=== PATIENT | female | born 1945 | race Caucasian/White ===

== ENCOUNTER 2020-08-25 19:39 | Inpatient (IN) | payer MEDICARE, OTHER ==
[~2020-08-25] VITALS: Ht 157.5 cm; Wt 62.6 kg
--- NOTE | 2020-08-25 20:03 | NUR ---
PT LLOYD 41 FROM HOME FOR C/O ALOC AND AGITATION S/P HAVING ROUTINE ANUAL CT. PT AAOX4 KAZAKH SPEAKER, BREATHING QUICKLY AND EVENLY, 91% VIA NC. PT PLACED ON 10L O2 SIMPLE MASK SATURATION TO 95%. PT ATTACHED TO MONITOR AND POX. PT GIVEN CALL LIGHT WITHIN REACH. MD AT BEDSIDE FOR EVAL. WILL CONTINUE TO MONITOR.
[2020-08-25 20:38] LABS: BASOPHILS % (AUTO) 0.2 % (0.0-2.0); EOSINOPHILS % (AUTO) 0.1 % (0.0-6.0); HEMATOCRIT 29 % (33-45); HEMOGLOBIN 9.1 g/dL (11.5-14.8); LYMPHOCYTES % (AUTO) 17.2 % (20.0-44.0); MEAN CORPUSCULAR HGB CONC 32 g/dl (31.0-36.0); MEAN CORPUSCULAR VOLUME 79 fL (82-100); MONOCYTES % (AUTO) 0.3 % (2.0-12.0); NEUTROPHILS # (AUTO) 4.7 K/uL (1.8-8.9); NEUTROPHILS % (AUTO) 82.2 % (43.0-81.0); PLATELET COUNT (AUTO) 185 K/uL (150-450); RED BLOOD CELL COUNT(AUTO) 3.67 MIL/uL (4.0-5.2); WHITE BLOOD COUNT (AUTO) 5.7 K/uL (4.3-11.0)
--- NOTE | 2020-08-25 20:43 | NUR ---
TAKEN TO CT
[2020-08-25 20:48] LABS: CALCIUM, SERUM 8.2 mg/dL (8.5-10.1); CARBON DIOXIDE 12 mmol/L (21-32); CHLORIDE 101 mmol/L (98-107); CREATININE 1.1 mg/dL (0.6-1.3); GLUCOSE 123 mg/dL (74-106); POTASSIUM 3.6 mmol/L (3.5-5.1); SODIUM SERUM 133 mmol/L (136-145); UREA NITROGEN, BLOOD 19 mg/dL (7-18)
[2020-08-25 20:51] LABS: SERUM AMMONIA 41 umol/L (11-32)
[2020-08-25 20:55] LABS: ALANINE AMINOTRANSFERASE 24 U/L (12-78); ALBUMIN 2.8 g/dL (3.4-5.0); ALCOHOL, BLOOD < 3 mg/dL (0-0); ALKALINE PHOSPHATASE 128 U/L (46-116); ASPARTATE AMINOTRANSFERASE 20 U/L (15-37); BILIRUBIN,DIRECT 0.2 mg/dL (0.0-0.2); BILIRUBIN,TOTAL 0.4 mg/dL (0.2-1.0); TOTAL PROTEIN, SERUM 6.8 g/dL (6.4-8.2)
[2020-08-25 20:57] LABS: ACETAMINOPHEN < 2 ug/ml (10-30)
[2020-08-25 21:04] LABS: THYROID STIMULATING HORMONE 0.847 uIU/mL (0.358-3.74)
--- NOTE | 2020-08-25 21:18 | NUR ---
BLOOD OBTAINED AND SENT TO LAB
[2020-08-25] MEDS ORDERED: VANCOMYCIN 1 GM VIAL ONE (21:19)
[2020-08-25] MEDS ORDERED: PIPERACILLIN /TAZOBACTAM 3.375 G VIAL IV ONE (21:19)
[2020-08-25] MEDS ORDERED: PIPERACILLIN /TAZOBACTAM 3.375 G in IV D5W 50 ML IV ONE (21:30)
[2020-08-25] MEDS ORDERED: IV NS 0.9% 1,000 ML BAG IV ONE (21:30)
[2020-08-25] MEDS ORDERED: VANCOMYCIN 1 GM in IV D5W 250 ML IV ONE (21:30)
--- NOTE | 2020-08-25 21:40 | NUR ---
COVID SWAB SENT TO LAB
--- NOTE | 2020-08-25 22:15 | NUR ---
DAUGHTER, DARRELL [phone]
--- NOTE | 2020-08-25 22:48 | NUR ---
pt placed on 15l o2 via NRB. staturating 96%
[2020-08-25] MEDS ORDERED: ONDANSETRON HCL/PF 4 MG/2 ML VIAL IVP PRN (23:00)
[2020-08-25] MEDS ORDERED: MAG HYDROX/AL HYDROX/SIMETH 30 ML UDC PO PRN (23:00)
[2020-08-25] MEDS ORDERED: ACETAMINOPHEN 325 MG TABLET PO PRN (23:00)
[2020-08-25] MEDS ORDERED: IV NS 0.9% 1,000 ML IV PRN (23:00)
[2020-08-25] MEDS ORDERED: Z GUARD REMEDY 2 OZ OINT TP PRN (23:00)
[2020-08-25] MEDS ORDERED: MAGNESIUM HYDROXIDE 30 ML UDC PO PRN (23:00)
[2020-08-26] VITALS (93 sets, daily range): BP systolic 60–139; BP diastolic 24–76
--- NOTE | 2020-08-26 00:13 | NUR ---
ATTEMPTED TO GIVE REPORT, NURSE WILL CALL BACK IN 10 MIN
--- NOTE | 2020-08-26 01:10 | NUR ---
PT IS GOING TO ICU 254
[2020-08-26] MEDS ORDERED: NOREPINEPHRINE 4 MG/4 ML AMPUL IV ONE ×2 (01:19→05:03)
[2020-08-26] MEDS: NOREPINEPHRINE 8 MG in IV NS 0.9% 242 ML IV PRN ×7 (01:36→15:33)
--- NOTE | 2020-08-26 02:05 | NUR ---
PER HOUSE SUP, RN ON BREAK, TAKE PT UP IN 30MIN
--- NOTE | 2020-08-26 02:51 | NUR ---
GAVE REPORT TO LEBRON HODGE FOR RAÚL
[2020-08-26] MEDS: ENOXAPARIN SODIUM 40 MG/0.4 ML DISP.SYRIN SQ SCH ×2 (03:52→21:52)
--- NOTE | 2020-08-26 04:00 | NUR ---
RN NOTES 0300 Received patient from ED via ACLS protocol awake alert and oriented x3.Dx:Sepsis/Pneumonia.Hypotensive with ongoing Levophed gtt at 0.5 mcg and NS at 75 ml/hr to LFA site intact.SOB on exertion with 15L NRB mask saturation 96%-97%.Breathing even and unlabored.Incontinent of urine kept clean and dry.Bed bath rendered.FC FR # 16 inserted under aseptic technique. Tolerated procedure well.BMx1 formed medium stool brown colored.Initial admission assessment done.Kept comfortable.Continue monitoring.
[2020-08-26 04:37] LABS: BASOPHILS # (AUTO) 0.2 K/uL (0.0-0.2); BASOPHILS % (AUTO) 0.4 % (0.0-2.0); EOSINOPHILS % (AUTO) 1.2 % (0.0-6.0); HEMATOCRIT 24 % (33-45); HEMOGLOBIN 7.4 g/dL (11.5-14.8); LYMPHOCYTES # (AUTO) 1.9 K/uL (0.8-4.8); LYMPHOCYTES % (AUTO) 4.5 % (20.0-44.0); MEAN CORPUSCULAR HGB CONC 32 g/dl (31.0-36.0); MEAN CORPUSCULAR VOLUME 79 fL (82-100); MONOCYTES # (AUTO) 1.1 K/uL (0.1-1.30); MONOCYTES % (AUTO) 2.5 % (2.0-12.0); NEUTROPHILS # (AUTO) 38.4 K/uL (1.8-8.9); NEUTROPHILS % (AUTO) 91.4 % (43.0-81.0); PLATELET COUNT (AUTO) 244 K/uL (150-450); RED BLOOD CELL COUNT(AUTO) 2.98 MIL/uL (4.0-5.2)
[2020-08-26 04:54] LABS: ALBUMIN 2.4 g/dL (3.4-5.0); BILIRUBIN,TOTAL 0.5 mg/dL (0.2-1.0); CALCIUM, SERUM 7.4 mg/dL (8.5-10.1); CREATININE 1.3 mg/dL (0.6-1.3); MAGNESIUM 1.3 mg/dL (1.8-2.4); PHOSPHORUS 2.5 mg/dL (2.5-4.9); POTASSIUM 3.6 mmol/L (3.5-5.1)
[2020-08-26 04:55] LABS: BAND % (MANUAL) 28 % (0.0-5.0); EOSINOPHILS % (MANUAL) 1 % (0-4); LYMPHOCYTES % (MANUAL) 3 % (16-48); MONOCYTES % (MANUAL) 1 % (0-11.0); NEUTROPHILS % (MANUAL) 64 (42-76)
[2020-08-26 04:56] LABS: METAMYELOCYTES % 3 % (0-0)
[2020-08-26] MEDS ORDERED: PIPERACILLIN /TAZOBACTAM 3.375 G VIAL IV ONE (05:03)
[2020-08-26 05:08] LABS: THYROID STIMULATING HORMONE 0.652 uIU/mL (0.358-3.74)
[2020-08-26] MEDS ORDERED: ZOSYN IVPB 3.375 G in IV D5W 50ml IV SCH (06:00)
--- NOTE | 2020-08-26 06:00 | NUR ---
RN NOTES AM labs resulted WBC 42 called to MEERA Barber with orders received and carried out.
--- NOTE | 2020-08-26 07:19 | NUR ---
RN NOTES Patient remains hemodynamically unstable.Max out on Levophed gtt.Received order to start Neosynephrine gtt.No acute distress noted.Needs PICC LINE insertion.Report given to day shift for continuity of care.
[2020-08-26 07:30] LABS: BASOPHILS % (AUTO) 0.1 % (0.0-2.0); EOSINOPHILS % (AUTO) 0.4 % (0.0-6.0); HEMATOCRIT 24 % (33-45); HEMOGLOBIN 7.6 g/dL (11.5-14.8); LYMPHOCYTES # (AUTO) 2.4 K/uL (0.8-4.8); LYMPHOCYTES % (AUTO) 4.5 % (20.0-44.0); MEAN CORPUSCULAR HGB CONC 31 g/dl (31.0-36.0); MEAN CORPUSCULAR VOLUME 79 fL (82-100); MONOCYTES # (AUTO) 2.4 K/uL (0.1-1.30); MONOCYTES % (AUTO) 4.6 % (2.0-12.0); NEUTROPHILS # (AUTO) 47.6 K/uL (1.8-8.9); NEUTROPHILS % (AUTO) 90.4 % (43.0-81.0); PLATELET COUNT (AUTO) 233 K/uL (150-450); RED BLOOD CELL COUNT(AUTO) 3.07 MIL/uL (4.0-5.2)
[2020-08-26 07:35] LABS: WHITE BLOOD COUNT (AUTO) 52.7 K/uL (4.3-11.0)
--- NOTE | 2020-08-26 07:40 | NUR ---
ICU/RN PT IS ON NRM AT 15L.SAT O2-98%. HAS SOB.ABG ORDERED.ON LEVOPHED DRIP MAXIMUM DOSE.NEOSYNEPHRINE ORDERED AND STARTED.AFEBRILE,NO PAIN REPORTED AT THIS TIME .IV FLUIDS INFUSING ORDERED.F/C DRAINING WITH YELLOW URINE,PT IS AWAKE,ALERT.ST HELENIAN SPEAKING.LABS REVIEW.MG-1.3. NOTIFIED.NEW ORDERS REVIEW.
[2020-08-26] MEDS: PHENYLEPHRINE 100 MG in IV NS 0.9% 240 ML IV PRN ×2 (07:41→22:40)
[2020-08-26] MEDS ORDERED: Magnesium 1GM/D5W 100ML PREMIX 100 ML IV SCH (08:00)
[2020-08-26] MEDS: Magnesium 1GM/D5W 100ML PREMIX 100 ML IV SCH ×4 (08:06→11:03)
[2020-08-26 08:15] LABS: ABG BASE EXCESS -12.7 mmol/L; ABG OXYGEN SATURATION 92.2 % (92.0-98.5); ABG PCO2 26.1 mmHg (35.0-45.0); ABG PH 7.295 (7.350-7.450); ABG PO2 66.5 mmHg (75.0-100.0); AaDO2 620.4 mmHg; COHb 0.3 % (0.5-1.5); MetHb 0.5 % (0.0-1.5); O2Hb 91.5 % (94.0-97.0); SITE, ABG Right Brachial; VENT MODE, BG non rebreather
[2020-08-26] MEDS: PANTOPRAZOLE 40 MG VIAL IV SCH (08:28)
--- NOTE | 2020-08-26 09:00 | NUR ---
ICU/RN DUE MEDS ARE GIVEN ORDERED.CONSENT FOR PICC LINE SIGH OVER THE PHONE.
[2020-08-26] MEDS: HYDROCORTISONE SOD SUCCINATE 100 MG/2 ML VIAL IV SCH ×3 (09:24→21:48)
[2020-08-26] MEDS ORDERED: OMEP40CA21 PO (11:00)
[2020-08-26] MEDS ORDERED: CLOP75TA15 PO (11:00)
[2020-08-26] MEDS ORDERED: TOLT2CAP22 PO (11:00)
[2020-08-26] MEDS ORDERED: ROSU20TA32 PO (11:00)
[2020-08-26] MEDS ORDERED: DOCU100C36 PO (11:00)
[2020-08-26] MEDS ORDERED: IBUP-1953 PO (11:00)
[2020-08-26] MEDS ORDERED: ERGO500093 PO (11:00)
[2020-08-26] MEDS ORDERED: FLUT16SP16 (11:00)
[2020-08-26] MEDS ORDERED: GABA-532 PO (11:00)
[2020-08-26] MEDS ORDERED: VALS80TA31 PO (11:01)
[2020-08-26] MEDS ORDERED: AMLO-212 PO (11:01)
[2020-08-26] MEDS ORDERED: CYAN25003 SL (11:01)
[2020-08-26] MEDS ORDERED: OLOP2.5D16 EACHEYE (11:01)
[2020-08-26] MEDS ORDERED: ACET-1262 PO (11:01)
[2020-08-26] MEDS ORDERED: BACL10TA PO (11:01)
[2020-08-26] MEDS ORDERED: CETI10TA14 PO (11:01)
[2020-08-26] MEDS: PIPERACILLIN /TAZOBACTAM 3.375 G in IV D5W 100 ML IV SCH ×2 (11:26→20:18)
[2020-08-26] MEDS: MORPHINE SULFATE INJ 2 MG/ML DISP.SYRIN IV PRN (11:39)
--- NOTE | 2020-08-26 11:39 | NUR ---
ICU/RN PT C/O OF ABDOMINAL PAIN 8-10/30.MORPHINE SULFATE 2 MG IV GIVEN ORDERED. ZOFRAN 4 MG IV GIVEN .CT OF ABDOMEN AND PELVIS ORDERED.WAITING FOR PICC LINE PLACEMENT.PT IS ON 2 PRESSORS NOW.ABG REPEAT.
[2020-08-26 11:42] LABS: BILIRUBIN,URINE NEGATIVE (NEGATIVE); COLOR,URINE YELLOW (YELLOW); LEUKOCYTE ESTERASE ,URINE SMALL (NEGATIVE); NITRITE, URINE NEGATIVE (NEGATIVE); PROTEIN,URINE 30 mg/dl (NEGATIVE); UGLUCOSE NEGATIVE (NEGATIVE); UROBILINOGEN,URINE 0.2 EU/dL (0.2)
[2020-08-26 11:45] LABS: ABG BASE EXCESS -15.7 mmol/L; ABG OXYGEN SATURATION 90.2 % (92.0-98.5); ABG PCO2 29.8 mmHg (35.0-45.0); ABG PO2 65.1 mmHg (75.0-100.0); AaDO2 618.1 mmHg; COHb 0.3 % (0.5-1.5); MetHb 0.2 % (0.0-1.5); O2Hb 89.7 % (94.0-97.0); SITE, ABG Right Brachial; VENT MODE, BG non rebreather
--- NOTE | 2020-08-26 12:15 | NUR ---
@[address] weaver due to increased work of breathing, metabolic acidosis, and low pao2. intubated with 7.5 et tube secured @ 23 cm lipline. CO2 detector changed to yellow color, breath sounds clear bilateral with symmetrical chest rise post intubation. vent settings below per owen: ac 26 vt 450 fio2 100% peep + 5 vent plugged into red outlet with alarms on and functioning. Addendum: 08/26/20 at 1246 by MILLIE POLANCO RT Amended: Links added.
--- NOTE | 2020-08-26 12:20 | NUR ---
ICU/RN PT IS INTUBATED.PLACED ON THE VENT AC MODE,FIO2-100%.SAT O2-90%.DIPRIVAN STARTED.RESTRAINS IS ON.
[2020-08-26] MEDS ORDERED: VASOPRESSIN INJ 20 UNIT/ML VIAL IM PRN (12:30)
[2020-08-26 12:41] LABS: BACTERIA,URINE Few /HPF (None Seen); URINE AMORPHOUS URATE Few /HPF (None Seen)
[2020-08-26 12:42] LABS: SQUAMOUS EPITHELIAL CELL,UR Moderate /HPF (None Seen)
[2020-08-26] MEDS ORDERED: PROPOFOL 10MG/ML 50ML 50 ML IV PRN (13:00)
[2020-08-26] MEDS ORDERED: PROPOFOL 100 ML IV PRN (13:00)
[2020-08-26] MEDS ORDERED: VASOPRESSIN INJ 50 UNIT in IV D5W 500 ML IV PRN (13:00)
[2020-08-26 14:07] LABS: ABG BASE EXCESS -21.9 mmol/L; ABG OXYGEN SATURATION 84.6 % (92.0-98.5); ABG PCO2 37.9 mmHg (35.0-45.0); ABG PH 6.974 (7.350-7.450); ABG PO2 63.9 mmHg (75.0-100.0); AaDO2 611.2 mmHg; COHb 0.3 % (0.5-1.5); MetHb 0.1 % (0.0-1.5); O2Hb 84.3 % (94.0-97.0); PEEP,BG 0 cm H2O; SITE, ABG Right Brachial; VT, ABG 450 mL
--- NOTE | 2020-08-26 14:24 | NUR ---
VENT CHANGES BELOW PER DR. WYNN: AC 28 VT 500 ML FIO2 100% PEEP +5 RN NOTIFIED ON VENT CHANGES MADE. Addendum: 08/26/20 at 1426 by MILLIE POLANCO RT Amended: Links added.
[2020-08-26] MEDS ORDERED: SODIUM BICARBONATE SYR 50 MEQ/50 ML DISP.SYRIN IV ONE (14:30)
[2020-08-26] MEDS: Sodium Bicarbonate 100 MEQ in IV D5W 1,000 ML IV SCH ×2 (14:52→23:30)
[2020-08-26] MEDS ORDERED: ETOMIDATE 2 MG/ML VIAL IV ONE (16:15)
[2020-08-26] MEDS ORDERED: ROCURONIUM BROMIDE 50 MG/5 ML IV ONE (16:15)
[2020-08-26 16:50] LABS: CARBON DIOXIDE 15 mmol/L (21-32); CHLORIDE 106 mmol/L (98-107); CREATININE 1.6 mg/dL (0.6-1.3); GLUCOSE 140 mg/dL (74-106); POTASSIUM 3.6 mmol/L (3.5-5.1); SODIUM SERUM 139 mmol/L (136-145); UREA NITROGEN, BLOOD 28 mg/dL (7-18)
--- NOTE | 2020-08-26 17:00 | NUR ---
ICU/RN DUE MEDS ARE GIVEN ORDERED,PT IS ON 2 PRESSORS NOW .PM CARE PROVIDED. SUCTION PROVIDED.PT HAS OG TUBE CONNECTED TO LOW INTERMEDIATE SUCTION WITH GREEN SECRETIONS.
[2020-08-26] MEDS: VANCOMYCIN 1 GM in IV D5W 250 ML IV SCH (17:18)
[2020-08-26] MEDS: NOREPINEPHRINE 32 MG in IV NS 0.9% 218 ML IV PRN (17:31)
[2020-08-26 17:58] LABS: ABG BASE EXCESS -13.5 mmol/L; ABG OXYGEN SATURATION 87.1 % (92.0-98.5); ABG PCO2 29.2 mmHg (35.0-45.0); ABG PH 7.248 (7.350-7.450); ABG PO2 55.3 mmHg (75.0-100.0); AaDO2 628.5 mmHg; COHb 0.3 % (0.5-1.5); MetHb 0.2 % (0.0-1.5); O2Hb 86.7 % (94.0-97.0); PEEP,BG 5 cm H2O; SITE, ABG Right Brachial; VT, ABG 500 mL
--- NOTE | 2020-08-26 18:11 | NUR ---
vent changes below per dr. rosas: PEEP + 8 cmH2O Addendum: 08/26/20 at 1812 by MILLIE POLANCO RT Amended: Links added.
[2020-08-26] MEDS: VASOPRESSIN INJ 40 UNIT in IV NS 0.9% 38 ML IV PRN (19:05)
--- NOTE | 2020-08-26 23:02 | NUR ---
PATIENT CONTINUES TO FIGHT THE VENTILATOR. SHE IS MAXED OUT AT 50MCG OF PROPOFOL. CONTACTED GABRIELLA IS OK TO TITRATE UP TO 100MCG. ORDER APPROVED.
[2020-08-26] MEDS ORDERED: SODIUM BICARBONATE SYR 50 MEQ/50 ML DISP.SYRIN ONE (23:15)
[2020-08-26] MEDS: PROPOFOL 10MG/ML 50ML 50 ML IV PRN (23:30)
[2020-08-27] VITALS (102 sets, daily range): BP systolic 49–150; BP diastolic 26–94
[2020-08-27] MEDS: PROPOFOL 10MG/ML 50ML 50 ML IV PRN ×8 (00:40→21:15)
[2020-08-27] MEDS: NOREPINEPHRINE 32 MG in IV NS 0.9% 218 ML IV PRN ×3 (01:25→18:53)
[2020-08-27] MEDS: PIPERACILLIN /TAZOBACTAM 3.375 G in IV D5W 100 ML IV SCH (03:37)
--- NOTE | 2020-08-27 04:28 | NUR ---
PATIENT RT GROIN SURGICAL SITE HAS MINIMAL BRUISING, SOME TENDERNESS BUT NO OOZING OR SIGNS OF BLEEDING. PULSES DORSALIS PEDAL PULSE PALPATED. WILL MONITOR Addendum: 08/27/20 at 0431 by RADAMES MCDANIEL RN DISREGARD... ERROR INCORRECT PATIENT.
[2020-08-27 04:40] LABS: BASOPHILS # (AUTO) 0.1 K/uL (0.0-0.2); BASOPHILS % (AUTO) 0.1 % (0.0-2.0); EOSINOPHILS % (AUTO) 12.1 % (0.0-6.0); HEMATOCRIT 24 % (33-45); LYMPHOCYTES # (AUTO) 2.4 K/uL (0.8-4.8); LYMPHOCYTES % (AUTO) 5.4 % (20.0-44.0); MEAN CORPUSCULAR HGB CONC 33 g/dl (31.0-36.0); MEAN CORPUSCULAR VOLUME 79 fL (82-100); MONOCYTES % (AUTO) 2.4 % (2.0-12.0); NEUTROPHILS # (AUTO) 35.1 K/uL (1.8-8.9); PLATELET COUNT (AUTO) 129 K/uL (150-450); RED BLOOD CELL COUNT(AUTO) 3.06 MIL/uL (4.0-5.2)
[2020-08-27 04:48] LABS: WHITE BLOOD COUNT (AUTO) 43.9 K/uL (4.3-11.0)
[2020-08-27 04:58] LABS: CALCIUM, SERUM 6.3 mg/dL (8.5-10.1); CARBON DIOXIDE 16 mmol/L (21-32); CHLORIDE 97 mmol/L (98-107); CREATININE 2.2 mg/dL (0.6-1.3); GLUCOSE 223 mg/dL (74-106); MAGNESIUM 2.9 mg/dL (1.8-2.4); PHOSPHORUS 4.2 mg/dL (2.5-4.9); POTASSIUM 3.7 mmol/L (3.5-5.1); SODIUM SERUM 133 mmol/L (136-145); UREA NITROGEN, BLOOD 34 mg/dL (7-18)
[2020-08-27] MEDS: HYDROCORTISONE SOD SUCCINATE 100 MG/2 ML VIAL IV SCH (05:17)
[2020-08-27 05:33] LABS: BAND % (MANUAL) 42 % (0.0-5.0); BASOPHILS % (MANUAL) 0 % (0.0-2.0); EOSINOPHILS % (MANUAL) 12 % (0-4); LYMPHOCYTES % (MANUAL) 4 % (16-48); METAMYELOCYTES % 7 % (0-0); MONOCYTES % (MANUAL) 2 % (0-11.0); NEUTROPHILS % (MANUAL) 33 (42-76)
[2020-08-27] MEDS: Sodium Bicarbonate 100 MEQ in IV D5W 1,000 ML IV SCH (07:38)
[2020-08-27] MEDS: VASOPRESSIN INJ 40 UNIT in IV NS 0.9% 38 ML IV PRN ×2 (07:39→23:01)
--- NOTE | 2020-08-27 07:40 | NUR ---
ICU/RN PT IS INTUBATED ON THE VENT AC MODE,FIO2-90%,SAT 02-96-99%.PEEP-8.ON 3 PRESSORS AND BICARB DRIP. SEDATED WITH DIPRIVAN.REACTIVE ON PAIN STIMULATION.OG TUBE CONNECTED TO LOW INTERMEDIATE SUCTION.NO OUTPUT.RIGHT UPPER ARM PICC LINE.F/C DRAINING WITH YELLOW URINE.AFEBRILE.NO PAIN REPORTED AT THIS TIME.SUCTION PROVIDED.REPOSITION FOR COMFORT.LABS REVIEW. NOTIFIED.
[2020-08-27 08:17] LABS: ABG BASE EXCESS -6.3 mmol/L; ABG OXYGEN SATURATION 91.9 % (92.0-98.5); ABG PCO2 28.9 mmHg (35.0-45.0); ABG PH 7.403 (7.350-7.450); ABG PO2 64.3 mmHg (75.0-100.0); AaDO2 547.8 mmHg; COHb 0.3 % (0.5-1.5); MetHb 0.1 % (0.0-1.5); O2Hb 91.5 % (94.0-97.0); PEEP,BG 8 cm H2O; SITE, ABG Left Radial; VT, ABG 500 mL
--- NOTE | 2020-08-27 08:22 | NUR ---
fio2 increase from 90% to 100% due to 64 pao2 and 95% spo2. rn notified on changes made. Addendum: 08/27/20 at 0823 by MILLIE POLANCO RT Amended: Links added.
[2020-08-27] MEDS: PANTOPRAZOLE 40 MG VIAL IV SCH (08:33)
--- NOTE | 2020-08-27 08:46 | NUR ---
VENT CHANGES BELOW PER DR. WYNN: PEEP +10 Addendum: 08/27/20 at 0847 by MILLIE POLANCO RT Amended: Links added.
--- NOTE | 2020-08-27 09:00 | NUR ---
ICU/RN DUE MEDS ARE GIVEN ORDERED.ABG DONE.MD NOTIFIED.NEW ORDERS RECEIVED PT IS ON 100% FIO2 AND PEEP-10.ON 3 PRESSORS.UNABLE TO PROVIDE SEDATION VACATION.PT IS NOT STABLE TO GO TO CT SCAN.
[2020-08-27] MEDS: VANCOMYCIN 1 GM in IV D5W 250 ML IV SCH (10:00)
[2020-08-27] MEDS ORDERED: MEROPENEM 500 MG in IV NS 0.9% 50 ML IV SCH (10:00)
[2020-08-27] MEDS: PHENYLEPHRINE 100 MG in IV NS 0.9% 240 ML IV PRN ×2 (10:37→18:52)
--- NOTE | 2020-08-27 11:00 | NUR ---
ICU/RN SHEA LEVEL 27.VANCOMYCIN HOLD.PHARMACY NOTIFIED.
--- NOTE | 2020-08-27 12:14 | NUR ---
vent changes below per dr. rosas: freq 32 BPM Vt 400 ml rn aware on vent changes made. Addendum: 08/27/20 at 1215 by MILLIE POLANCO RT Amended: Links added.
[2020-08-27] MEDS: MEROPENEM 1 G in IV NS 0.9% 100 ML IV SCH ×2 (12:36→23:01)
[2020-08-27 14:31] LABS: ABG BASE EXCESS -3.9 mmol/L; ABG OXYGEN SATURATION 96.2 % (92.0-98.5); ABG PCO2 33.1 mmHg (35.0-45.0); ABG PH 7.406 (7.350-7.450); ABG PO2 88.8 mmHg (75.0-100.0); AaDO2 591.1 mmHg; COHb 0.3 % (0.5-1.5); MetHb 0.4 % (0.0-1.5); O2Hb 95.5 % (94.0-97.0); PEEP,BG 10 cm H2O; SITE, ABG Left Radial; VT, ABG 400 mL
--- NOTE | 2020-08-27 14:41 | NUR ---
85% FIO2 PER DR. WYNN Addendum: 08/27/20 at 1442 by MILLIE POLANCO RT Amended: Links added.
[2020-08-27] MEDS: MORPHINE SULFATE INJ 2 MG/ML DISP.SYRIN IV PRN (14:59)
--- NOTE | 2020-08-27 15:00 | NUR ---
ICU/RN ABG DONE .MD NOTIFIED NEW ORDERS RECEIVED.FIO2 DECREASED TO 85%,SAT O2-92%.PT IS IS UNCOMFORTABLE RR INCREASED.MORPHINE SULFATE 2 MG GIVEN ORDERED.
--- NOTE | 2020-08-27 17:00 | NUR ---
MEAGAN ALCANTAR UPDATED WITH PATIENT CONDITION. MAX OUT ON 3 PRESSORS WITH SBP>70'S. NO FURTHER ORDERS AT THIS TIME. CONTINUE ONGOING TREATMENT/CARE.
--- NOTE | 2020-08-27 17:19 | NUR ---
vent changes made below due to changes of condition: no peep due to 49/29 blood pressure 100% fio2 due to 90% spo2 Addendum: 08/27/20 at 1721 by MILLIE POLANCO RT Amended: Links added.
--- NOTE | 2020-08-27 17:30 | NUR ---
PEEP DISCONTINUED BY RT PER DR. WYNN SECONDARY TO SEVERE HYPOTENSION ON TOP OF MAX PRESSORS.
--- NOTE | 2020-08-27 18:00 | NUR ---
ONGOING FAMILY VISITS AND UPDATE OF CONDITION . REMAINS A FULL CODE PER FAMILY.
--- NOTE | 2020-08-27 19:30 | NUR ---
SURGICAL CONSULTANT RCD PT W/DX SEPSIS, PNEUMONIA, RESP FAIL. PT IS SEDATED ON PROPOFOL @ 30 MCG/KG/MIN; PUPILS SLUGGISH 3 MM. REACTS TO PAINFUL STIMULI. SWELLING TO ORBITAL AREA. INTUBATED 7.5 @ 23 W/VENT SETTINGS AC 32 400 100%; SATURATION DROPS TO 80s DESPITE HIGH FIO2. AWARE. ST ON MONITOR. CURRENTLY ON LEVOPHED 1 MCG/KG/MIN, NEOSYNEPHRINE 3 MCG/KG/MIN AND VASOPRESSIN 0.04 UNITS/ HR'PER DR WYNN DO NOT TITRATE VASOPRESSIN. NPO.OG TUBE LIS. NO OUTPUT NOTED AT THIS TIME. ÁLVARO PICC PATENT.
--- NOTE | 2020-08-27 19:43 | NUR ---
RCVD PT ORALLY INTUBATED W/ 7.5 ET TUBE SECURED @23CM [facility] WITH THE SETTINGS OF AC 32 , VT 400, FIO2 100% . PT IS TACHYPNEIC AND SEDATED . SUCTIONED SMALL AMOUNT OF PINK TINGED THICK SECRETIONS. VENT PLUGGED INTO RED OUTLET , VENT ALARMS ON AND AUDIBLE. AMBU BAG AT BEDSIDE. WILL CONTINUE TO MONITOR PT T/O SHIFT.
--- NOTE | 2020-08-27 20:00 | NUR ---
PRINT FINISHER DAUGHTER DARRELL AT BEDSIDE UPDATED ON PLAN OF CARE
--- NOTE | 2020-08-27 20:15 | NUR ---
BLANKET WINDER HELPER PT TACHYPNEIC PROPOFOL INCREASED TO 35 MCG/KG/MIN
--- NOTE | 2020-08-27 20:30 | NUR ---
ANESTHESIA TECH PT TACHYPNEIC PROPOFOL INCREASED TO 40 MCG/KG/MIN
--- NOTE | 2020-08-27 20:56 | NUR ---
COLOR SHOP HELPER NO ADMIN SHEA LEVEL IS 25
[2020-08-27] MEDS ORDERED: VANCOMYCIN 0.75 GM in IV D5W 250 ML IV SCH (21:00)
--- NOTE | 2020-08-27 21:00 | NUR ---
CARPENTER ASSEMBLER PT TACHYPNEIC PROPOFOL INCREASED TO 40 MCG/KG/MIN
[2020-08-27] MEDS: ENOXAPARIN SODIUM 40 MG/0.4 ML DISP.SYRIN SQ SCH (21:14)
--- NOTE | 2020-08-27 22:05 | NUR ---
FMD TEACHER PTS BL CALF NOTED WARM TO TOUCH W/SWELLING WHILE TOES/FEET ARE COLD AND MOTTLED. NOTIFIED MUSEUM SPECIALIST GABRIELLA W/ORDERS FOR STAT BLE DOPPLER TO R/O DVT. Addendum: 08/27/20 at 2323 by JAY ZAVALA RN NEGATIVE FOR DVT
[2020-08-28] VITALS (98 sets, daily range): BP systolic 69–150; BP diastolic 32–92
[2020-08-28] MEDS: PROPOFOL 10MG/ML 50ML 50 ML IV PRN ×11 (00:35→23:35)
[2020-08-28] MEDS: PHENYLEPHRINE 100 MG in IV NS 0.9% 240 ML IV PRN ×3 (00:35→19:16)
--- NOTE | 2020-08-28 01:30 | NUR ---
SOFTWARE DEVELOPMENT ANALYST PT TACHYPNEIC PROPOFOL INCREASED TO 50 MCG/KG/MIN
[2020-08-28] MEDS: NOREPINEPHRINE 32 MG in IV NS 0.9% 218 ML IV PRN ×3 (02:51→18:47)
[2020-08-28 04:18] LABS: BASOPHILS # (AUTO) 0.1 K/uL (0.0-0.2); BASOPHILS % (AUTO) 0.2 % (0.0-2.0); EOSINOPHILS % (AUTO) 1.6 % (0.0-6.0); HEMATOCRIT 23 % (33-45); HEMOGLOBIN 8.7 g/dL (11.5-14.8); LYMPHOCYTES # (AUTO) 1.8 K/uL (0.8-4.8); LYMPHOCYTES % (AUTO) 6.5 % (20.0-44.0); MEAN CORPUSCULAR HGB CONC 38 g/dl (31.0-36.0); MEAN CORPUSCULAR VOLUME 79 fL (82-100); MONOCYTES # (AUTO) 0.6 K/uL (0.1-1.30); NEUTROPHILS # (AUTO) 25.5 K/uL (1.8-8.9); NEUTROPHILS % (AUTO) 89.7 % (43.0-81.0); PLATELET COUNT (AUTO) 112 K/uL (150-450); RED BLOOD CELL COUNT(AUTO) 2.91 MIL/uL (4.0-5.2); WHITE BLOOD COUNT (AUTO) 28.4 K/uL (4.3-11.0)
[2020-08-28 04:44] LABS: CARBON DIOXIDE 21 mmol/L (21-32); CHLORIDE 99 mmol/L (98-107); GLUCOSE 103 mg/dL (74-106); MAGNESIUM 2.9 mg/dL (1.8-2.4); PHOSPHORUS 4.2 mg/dL (2.5-4.9); POTASSIUM 4.4 mmol/L (3.5-5.1); SODIUM SERUM 136 mmol/L (136-145); UREA NITROGEN, BLOOD 43 mg/dL (7-18)
[2020-08-28 05:06] LABS: CALCIUM, SERUM 5.2 mg/dL (8.5-10.1)
[2020-08-28 06:28] LABS: BAND % (MANUAL) 6 % (0.0-5.0); LYMPHOCYTES % (MANUAL) 5 % (16-48); MONOCYTES % (MANUAL) 4 % (0-11.0); NEUTROPHILS % (MANUAL) 85 (42-76)
--- NOTE | 2020-08-28 07:14 | NUR ---
FARM PRODUCTS SHIPPER PT REMAINED MAX ON 3 PRESSORS ATTEMPTED TO WEAN OFF HOWEVER SBP NOTED TO BE IN THE 80s. SATURATION DROPPED TO MID 80s DESPITE BEING ON 100% FIO2 MD AWARE OF CONDITION.
--- NOTE | 2020-08-28 07:30 | NUR ---
RN OPENING NOTES RECEIVED PATIENT SEDATED AND ORALLY INTUBATED. MECHVENT SETTINGS OF AC 32 TV 400 FIO2 100% PEEP 0. OGT ON LOW CONTINUOUS SUCTION. ST 102 ON BEDSIDE MONITOR. ÁLVARO PICC WITH VASO AT 0.04UNITS/MIN, LEVO AT 1.0MCG/KG AND MAMTA AT 3 MCG/KG. CVP MEASURES 15MMHG. PERIPHERAL LINES X2 INTACT.WITH N/S AT 10ML/HR. STEVE DRAINING BY GRAVITY. SAFETY CHECKS IN PLACE. EMERGENCY CART AT BEDSIDE. WILL CONTINUE TO MONITOR.
[2020-08-28] MEDS: PANTOPRAZOLE 40 MG VIAL IV SCH (08:06)
--- NOTE | 2020-08-28 08:40 | NUR ---
RN NOTE PATIENT'S DAUGHTER DARRELL WILL BE THE FAMILY'S POINT OF CONTACT ([phone]). SHE CAME WITH NIECE WHO'S NAME IS ALSO DARRELL. DR RHODES DID HIS ROUNDS AND WAS ABLE TO DISCUSS WITH BOTH REGARDING CURRENT MEDICAL CONDITION AND MANAGEMENT. NIECE DARRELL VERBALIZED FRUSTRATION AND VISIBLY UPSET DURING INITIAL ENCOUNTER WITH MD. BOTH PARTIES ENDED THE CONVERSATION PLEASANTLY.
[2020-08-28] MEDS: MEROPENEM 1 G in IV NS 0.9% 100 ML IV SCH ×2 (10:12→23:35)
[2020-08-28 10:17] LABS: ABG BASE EXCESS -8.5 mmol/L; ABG OXYGEN SATURATION 73.6 % (92.0-98.5); ABG PCO2 45.6 mmHg (35.0-45.0); ABG PH 7.227 (7.350-7.450); ABG PO2 43.3 mmHg (75.0-100.0); AaDO2 624.1 mmHg; COHb 0.3 % (0.5-1.5); MetHb 0.3 % (0.0-1.5); O2Hb 73.2 % (94.0-97.0); PEEP,BG 5 cm H2O; SITE, ABG Right Radial; VT, ABG 400 mL
[2020-08-28] MEDS ORDERED: Calcium Gluconate 1GM/10ML 4.65 MEQ in IV D5W 50 ML IV ONE (11:30)
[2020-08-28] MEDS: MICAFUNGIN SODIUM 100 MG in IV NS 0.9% 100 ML IV SCH (12:05)
[2020-08-28 13:16] LABS: ABG BASE EXCESS -8.7 mmol/L; ABG OXYGEN SATURATION 93.9 % (92.0-98.5); ABG PCO2 51.6 mmHg (35.0-45.0); ABG PH 7.185 (7.350-7.450); ABG PO2 83.5 mmHg (75.0-100.0); AaDO2 577.9 mmHg; COHb 0.3 % (0.5-1.5); MetHb 0.2 % (0.0-1.5); O2Hb 93.4 % (94.0-97.0); PEEP,BG 15 cm H2O; VT, ABG 400 mL
[2020-08-28 15:28] LABS: D-DIMER 17.39 mg/L(FEU (0.17-0.50)
[2020-08-28] MEDS: ACETAMINOPHEN 650 MG/SUPP.RECT RC PRN ×2 (15:37→21:38)
[2020-08-28] MEDS: VASOPRESSIN INJ 40 UNIT in IV NS 0.9% 38 ML IV PRN (15:47)
--- NOTE | 2020-08-28 19:00 | NUR ---
RN CLOSING NOTES PATIENT SEDATED AND ORALLY INTUBATED. MECHVENT SETTINGS OF AC 32 TV 430 FIO2 100% PEEP 15. OGT ON LOW CONTINUOUS SUCTION NO OUTPUT. ST 100 ON BEDSIDE MONITOR. ÁLVRAO PICC WITH VASO AT 0.04UNITS/MIN, LEVO AT 0.9MCG/KG AND MAMTA AT 3 MCG/KG. CVP MEASURES 15MMHG. PERIPHERAL LINES X2 INTACT. STEVE DRAINING BY GRAVITY. SAFETY CHECKS IN PLACE. WILL ENDORSE TO NIGHT RN FOR CONTINUITY OF CARE.
[2020-08-28] MEDS ORDERED: VANCOMYCIN 0.75 GM in IV D5W 250 ML IV SCH (21:00)
[2020-08-28] MEDS: ENOXAPARIN SODIUM 40 MG/0.4 ML DISP.SYRIN SQ SCH (21:28)
[2020-08-29] VITALS (95 sets, daily range): BP systolic 42–111; BP diastolic 14–71
[2020-08-29] MEDS: PROPOFOL 10MG/ML 50ML 50 ML IV PRN ×6 (01:52→22:16)
--- NOTE | 2020-08-29 01:55 | NUR ---
PRINTED CIRCUIT BOARDS PLASMA ETCHER AT 0147 PT HR NOTED TO GO TO 160s PER EKG PT IN AFIB. NOTIFIED HELP DESK TEAM LEADER GRIZZLYMAN GABRIELLA. INFORMED DAUGHTER DARRELL OF CHANGE IN PATIENT CONDITION. STAT LABS AND CXR ORDERED.
[2020-08-29] MEDS ORDERED: DEXTROSE 50%-WATER 50 ML DISP.SYRIN IVP ONE (02:00)
[2020-08-29 02:30] LABS: BASOPHILS # (AUTO) 0.1 K/uL (0.0-0.2); BASOPHILS % (AUTO) 0.5 % (0.0-2.0); HEMOGLOBIN 8.2 g/dL (11.5-14.8); LYMPHOCYTES # (AUTO) 1.5 K/uL (0.8-4.8); LYMPHOCYTES % (AUTO) 11.6 % (20.0-44.0); MEAN CORPUSCULAR HGB CONC 41 g/dl (31.0-36.0); MEAN CORPUSCULAR VOLUME 82 fL (82-100); MONOCYTES # (AUTO) 0.3 K/uL (0.1-1.30); MONOCYTES % (AUTO) 2.5 % (2.0-12.0); NEUTROPHILS # (AUTO) 10.8 K/uL (1.8-8.9); NEUTROPHILS % (AUTO) 81.4 % (43.0-81.0); PLATELET COUNT (AUTO) 104 K/uL (150-450); RED BLOOD CELL COUNT(AUTO) 2.44 MIL/uL (4.0-5.2); WHITE BLOOD COUNT (AUTO) 13.2 K/uL (4.3-11.0)
[2020-08-29] MEDS: NOREPINEPHRINE 32 MG in IV NS 0.9% 218 ML IV PRN ×3 (02:38→20:15)
--- NOTE | 2020-08-29 02:44 | NUR ---
MEDICAL ADMINISTRATIVE SPECIALIST BLOOD GLUCOSE READS LO STA LAB WORK ORDERED. ONE AMP D50 GIVEN. RECHECK 76.
[2020-08-29 03:07] LABS: ALANINE AMINOTRANSFERASE 119 U/L (12-78); ALKALINE PHOSPHATASE 283 U/L (46-116); ASPARTATE AMINOTRANSFERASE 211 U/L (15-37); BILIRUBIN,DIRECT 0.8 mg/dL (0.0-0.2); BILIRUBIN,TOTAL 1.1 mg/dL (0.2-1.0); CARBON DIOXIDE 14 mmol/L (21-32); CHLORIDE 103 mmol/L (98-107); CREATININE 4.5 mg/dL (0.6-1.3); GLUCOSE 153 mg/dL (74-106); MAGNESIUM 3.1 mg/dL (1.8-2.4); POTASSIUM 5.8 mmol/L (3.5-5.1); SODIUM SERUM 136 mmol/L (136-145); TOTAL PROTEIN, SERUM 4.6 g/dL (6.4-8.2); UREA NITROGEN, BLOOD 56 mg/dL (7-18)
[2020-08-29 03:08] LABS: HEMATOCRIT 20 % (33-45)
[2020-08-29 03:11] LABS: ALBUMIN 1.3 g/dL (3.4-5.0); CALCIUM, SERUM 5.9 mg/dL (8.5-10.1)
[2020-08-29] MEDS: DEXTROSE 50%-WATER 50 ML DISP.SYRIN IVP PRN ×2 (03:25→12:10)
[2020-08-29] MEDS: PHENYLEPHRINE 100 MG in IV NS 0.9% 240 ML IV PRN ×3 (03:46→20:20)
[2020-08-29] MEDS ORDERED: Calcium Gluconate 0.465 MEQ/ML VIAL IV ONE ×2 (03:52→04:00)
[2020-08-29] MEDS ORDERED: Calcium Gluconate 1GM/10ML 4.65 MEQ in IV D5W 50 ML IV ONE (04:00)
--- NOTE | 2020-08-29 04:00 | NUR ---
MICROPHONE BOOM OPERATORSUBSCRIPTION AGENT AT BEDSIDE UPDATED ON PLAN OF CARE.
--- NOTE | 2020-08-29 04:10 | NUR ---
GREY ROLL WORKER MULTIPLE CALLS TO DAIANA FOR CXR RESULTS.
--- NOTE | 2020-08-29 04:26 | NUR ---
PRINTING SUPPLIES SALES REPRESENTATIVE: CALLED VEGETABLE PREPARER ON-CALL AND SPOKE WT DR. JIANG. RELAYED ALL LAB RESULTS WT ORDER TO DRAW LACTIC ACID, ABG AND TO GIVE 2 AMS OF BICARB. NOTED AND CARRIED OUT. PRIMARY NURSE JAY MADE AWARE.
[2020-08-29] MEDS ORDERED: SODIUM BICARBONATE SYR 50 MEQ/50 ML DISP.SYRIN IV ONE (04:30)
[2020-08-29] MEDS ORDERED: SODIUM BICARBONATE SYR 50 MEQ/50 ML DISP.SYRIN ONE ×2 (04:50→05:38)
[2020-08-29 05:09] LABS: ABG BASE EXCESS -22.7 mmol/L; ABG OXYGEN SATURATION 97.3 % (92.0-98.5); ABG PCO2 41.1 mmHg (35.0-45.0); ABG PH 6.918 (7.350-7.450); ABG PO2 129.5 mmHg (75.0-100.0); AaDO2 470.1 mmHg; COHb 0.3 % (0.5-1.5); MetHb 0.2 % (0.0-1.5); O2Hb 96.8 % (94.0-97.0); PEEP,BG 15 cm H2O; SITE, ABG Right Radial; VT, ABG 430 mL
--- NOTE | 2020-08-29 05:09 | NUR ---
RT NOTE Late Entry: ABG taken and critical results given to RN. Will continue to monitor closely.
[2020-08-29] MEDS ORDERED: Sodium Bicarbonate 100 MEQ in IV D5W 1,000 ML IV PRN (05:30)
--- NOTE | 2020-08-29 06:03 | NUR ---
RT NOTE Pt rec'd orally intubated via ETT Sz #7.5 secured @ 23CM at the lipline. Pt on [facility] vent on noted settings as charted. pt sx'd for minimal amt of clear secretions. ETT is patent and secured. Alarms are set and audible. Ambu bag bedside. Vent plugged into red outlet. Addendum: 08/29/20 at 0611 by MAGGIE WALLACE RT Amended: Links added.
[2020-08-29] MEDS ORDERED: Sodium Bicarbonate 100 MEQ in IV D5W 1,000 ML IV SCH ×3 (06:31→16:30)
--- NOTE | 2020-08-29 06:54 | NUR ---
PARENT COACH PT HEMODYNAMICALLY UNSTABLE TO BE REPOSITIONED.
--- NOTE | 2020-08-29 07:35 | NUR ---
ICU/RN PT IS INTUBATED ON THE VENT AC -32,FIO2-90%,PEEP-15.SEDATED WITH DIPRIVAN ,ON 3 PRESSORS MAXIMUM DOSES.HR-130-160 BPM.A-FIB ON MONITOR.MD AWARE.ON BICARB DRIP.RIGHT UPPER ARM PICC LINE.OG TUBE CONNECTED TO LOW INTERMEDIATE SUCTION, NO OUTPUT AT THIS TIME.F/C IN PLACE NO URINE OUTPUT.PT HAS ACUTE RENAL FAILURE.GENERALIZED EDEMA PRESENT.LABS REVIEW.MD NOTIFIED.CONTINUE MONITORING.
[2020-08-29] MEDS: PANTOPRAZOLE 40 MG VIAL IV SCH (08:09)
--- NOTE | 2020-08-29 09:00 | NUR ---
ICU/RN DUE MEDS ARE GIVEN ORDERED.ABG DONE .MD NOTIFIED.NEW ORDERS RECEIVED.NEW VENT CHANGES.TV-480,PEEP-10. UNABLE PROVIDE SEDATION VACATION/PT IS NOT STABLE.FIO2-90%.SAT O2-70-90%.CONTINUE MONITORING.
[2020-08-29] MEDS ORDERED: AMIODARONE 150 MG in IV D5W 100 ML IV ONE (10:00)
[2020-08-29] MEDS: VASOPRESSIN INJ 40 UNIT in IV NS 0.9% 38 ML IV PRN (10:06)
[2020-08-29] MEDS ORDERED: AMIODARONE 450 MG in IV D5W 241 ML IV PRN (10:10)
[2020-08-29] MEDS: MICAFUNGIN SODIUM 100 MG in IV NS 0.9% 100 ML IV SCH (10:22)
[2020-08-29] MEDS: MEROPENEM 1 G in IV NS 0.9% 100 ML IV SCH ×2 (10:23→22:21)
--- NOTE | 2020-08-29 11:00 | NUR ---
ICU/RN PT HEART RHYTHM A-FIB 120-160 BPM.MD NOTIFIED.AMIODARONE BOLUS GIVEN ORDERED AND DRIP STARTED ORDERED.
[2020-08-29] MEDS ORDERED: SODIUM BICARBONATE SYR 50 MEQ/50 ML DISP.SYRIN IV STA (11:42)
[2020-08-29 13:31] LABS: ABG OXYGEN SATURATION 88.3 % (92.0-98.5); ABG PH 6.905 (7.350-7.450); ABG PO2 72.7 mmHg (75.0-100.0); AaDO2 533.1 mmHg; COHb 0.3 % (0.5-1.5); MetHb 0.2 % (0.0-1.5); O2Hb 87.9 % (94.0-97.0); PEEP,BG 10 cm H2O; SITE, ABG Right Radial; VT, ABG 480 mL
--- NOTE | 2020-08-29 15:53 | NUR ---
ICU/RN DR SMITH AT BEDSIDE.PT HR CONVERTED TI SINUS RITHM.56BPM.OK TO STOP AMIODARONE DRIP. UNABLE TO READ BP.
--- NOTE | 2020-08-29 18:00 | NUR ---
ICU/RN UNABLE TO READ BLOOD PRESSURE AND SAT O2.VERY LOW PERFUSION.ARTERIAL LINE INSERTED.BP 50/20.UNABLE TO PLACE HD CATH DUE TO VERY LOW BP.HR-51-52 BPM.PT STILL ON 3 PRESSORS MAXIMUM DOSES. FAMILY AT BEDSIDE.CONTINUE MONITORING.
--- NOTE | 2020-08-29 18:55 | NUR ---
ICU/RN ALL FAMILY AT BEDSIDE.UNDERSTAND PATIENT CRITICAL CONDITION.IN CASE OF CODE BLUE ASK DO NOT DO CPR FOR THE PATIENT.CONTINUE ALL MEDICATIONS. MD NOTIFIED.CODE STATUS TO DNR CHANGED.CONTINUE MONITORING.
--- NOTE | 2020-08-29 19:40 | NUR ---
RN NOTES RECEIVED PATIENT HEMODYANAMICALLY UNSTABLE, ORALLY INTUBATED WITH VENT SETTING AC 32 TV 480 FIO2 100% AND PEEP 10 SEDATED WITH DIPRIVAN @ 40 MCG/KG/MIN TITRATED DOWN TO 35. SB WITH FIRST DEGREE AVB. WTIH OGT TO LIS NO OUTPUT. IV SITE ON ÁLVARO PICC LINE WITH MAMTA @ 3MCG/KG/MIN,VASOPRESSIN @0.04, LEVOPHED @ 1 MCG/KG/MIN, ALLPRESSORS ON MAXDOSE BUT REMAINED HYPOTENSIVE ON A- LINE. D5 W+2 AMP BICARB @ 100 ML/HR ONGOING. PATIENT HAS A- LINE ON RIGHT WRIST READING VERY LOW BP. SBP <60 MMHG. FAMILY IS AWARE REGARDIGN PATIENT CRITICAL STATUS.PATIENT IS DNR NOW.
--- NOTE | 2020-08-29 20:20 | NUR ---
RN NOTES FAMILY MEMBERS CAME AND VISITED PATIENT. AWRE ABOUT PATIENT STATUS. ORAL CARE PROVIDED. WILL CLOSELY MONITOR.
[2020-08-29] MEDS ORDERED: VANCOMYCIN 0.75 GM in IV D5W 250 ML IV SCH (21:00)
--- NOTE | 2020-08-29 23:00 | NUR ---
RN NOTES FAMILY AT BEDSIDE NOTED RHYTHM CHANGED FROM SB TO JUNCTIONAL GINGER HR 47. SATURATION REMAINED UNABLE TO READ.
[2020-08-30] VITALS: BP_SYST 27; BP_SYST 42; BP_DIAS 13; BP_DIAS 18
[2020-08-30 00:15] VITALS: BP 27/13
--- NOTE | 2020-08-30 01:46 | NUR ---
RN NOTES 0011 AM- PATIENT IS IN AGONAL RHYTHM UNABLE TO READ HR AND VS. 0020 AM - CHARGE NURSE ASSESSED AND PRONOUNCED PATIENT FAMILY AT BEDSIDE. 0022 AM- REHABILITATION SERVICES MANAGER AND ADMITTING MADE AWARE. 0044 AM - CALLED [facility] [employer] AND INFORMEDREGARDING THE PATIENT EXPIRATION. SPOKE TO NU AND RELEASE THE PATIENT CASE # [id number] 0115 AM - POST MORTEM CARE DONE. 0157 AM- FAMILY CAME FOR THE LAST TIME TO SAY BYE, AND DAUGHTER DARRELL WILL CALL TO LET US KNOW REGARDING MORTUARY. INFORMATION GIVEN ANDTHE PROCESS TO RELEASE THE BODY.
== END 2020-08-30 00:20 | DRG 871 ==
LOC: ER 19:41 → TELE1 08-26 00:12 → ICU 08-26 01:10
PROVIDERS: ADMIT Hospitalist; ATTEND Internal Medicine
PROC: 5A1945Z Respiratory Ventilation, 24-96 Consecutive Hours (ICD-10-PCS; principal; 2020-08-26)
PROC: 0BH18EZ Insertion of Endotracheal Airway into Trachea, Via Natural or Artificial Opening Endoscopic (ICD-10-PCS; 2020-08-26)
PROC: 02HV33Z Insertion of Infusion Device into Superior Vena Cava, Percutaneous Approach (ICD-10-PCS; 2020-08-26)
PROC: B548ZZA Ultrasonography of Superior Vena Cava, Guidance (ICD-10-PCS; 2020-08-26)
PROC: 03HB33Z Insertion of Infusion Device into Right Radial Artery, Percutaneous Approach (ICD-10-PCS; 2020-08-29)
DX: A41.9 Sepsis, unspecified organism (principal); J69.0 Pneumonitis due to inhalation of food and vomit; E43 Unspecified severe protein-calorie malnutrition; N17.0 Acute kidney failure with tubular necrosis; R65.21 Severe sepsis with septic shock; J96.01 Acute respiratory failure with hypoxia; E87.1 Hypo-osmolality and hyponatremia; E87.2 Acidosis; G93.40 Encephalopathy, unspecified; N13.30 Unspecified hydronephrosis; E86.0 Dehydration; D50.9 Iron deficiency anemia, unspecified; Z86.73 Personal history of transient ischemic attack (TIA), and cerebral infarction without residual deficits; E88.09 Other disorders of plasma-protein metabolism, not elsewhere classified; B96.20 Unspecified Escherichia coli [E. coli] as the cause of diseases classified elsewhere; E83.51 Hypocalcemia; I11.0 Hypertensive heart disease with heart failure; Z66 Do not resuscitate; Z68.25 Body mass index [BMI] 25.0-25.9, adult; I50.9 Heart failure, unspecified; K86.89 Other specified diseases of pancreas; D47.3 Essential (hemorrhagic) thrombocythemia; Z20.822 Contact with and (suspected) exposure to COVID-19; K72.90 Hepatic failure, unspecified without coma
CPT/HCPCS: 31720; 36415; 36600; 70450-TC; 71045-TC; 74018; 76700-TC; 80048-TC; 80053-TC; 80061-TC; 80076-TC; 80202-TC; 81001; 82140-TC; 82533; 82803-TC; 82962-TC; 83605-TC; 83735-TC; 84100-TC; 84443-TC; 84484-TC; 85025-TC; 85396; 85730-TC; 87040-TC; 87081-TC; 87086-TC; 87186-TC; 93307-TC; 93970-TC; 94002-TC; 94003-TC; 94799-TC; A6403; C9113; C9803; G0378; G0480; J0282; J0610; J1650; J1720; J2185; J2248; J2270; J2370; J2405; J2543; J3370; J3475; J3490; J7030; J7040; J7050; J7060; J7070